=== PATIENT | female | born 1980 | race Caucasian/White ===

== ENCOUNTER → 2017-07-18 | Outpatient (CLI) | payer OTHER | END | disposition home or self-care (01) | LOC: MRI 11:57 | DX: L05.91 Pilonidal cyst without abscess (principal) | CPT/HCPCS: 72197 ==

== ENCOUNTER 2020-04-19 23:25 | Emergency (ER) | payer OTHER ==
[~2020-04-19] VITALS: Ht 154.9 cm; Wt 66.7 kg
[2020-04-20] MEDS ORDERED: KETO10TA2 PO (09:19)
[2020-04-20] MEDS ORDERED: AMOX-CLAV 875-1 EACH PO (09:19)
[2020-04-20] MEDS ORDERED: INTESTINEX680 M1 PO (09:19)
== END 2020-04-20 09:48 ==
LOC: ER 23:25
DX: S30.811A Abrasion of abdominal wall, initial encounter (principal); K65.4 Sclerosing mesenteritis; R10.31 Right lower quadrant pain; Z20.828 Contact with and (suspected) exposure to other viral communicable diseases; X58.XXXA Exposure to other specified factors, initial encounter; Y93.89 Activity, other specified; Y92.89 Other specified places as the place of occurrence of the external cause; Y99.8 Other external cause status

== ENCOUNTER 2021-10-06 18:31 | Emergency (ER) | payer OTHER ==
[~2021-10-06] VITALS: Ht 154.9 cm; Wt 59.9 kg
[~2021-10-06 18:31] MED LIST: AMOX-CLAV 875-1 EACH PO; INTESTINEX680 M1 PO; KETO10TA2 PO
[2021-10-06] MEDS ORDERED: DICLOFENAC SODI75 MG PO (22:57)
== END 2021-10-06 23:01 | disposition home or self-care (01) ==
LOC: ER 18:31
DX: N83.209 Unspecified ovarian cyst, unspecified side (principal); D25.9 Leiomyoma of uterus, unspecified